=== PATIENT | male | born 1970 | race Caucasian/White ===

== ENCOUNTER 2021-12-27 19:56 | Emergency (ER) | payer MEDICAID ==
[~2021-12-27] VITALS: Ht 182.9 cm; Wt 90.7 kg
--- NOTE | 2021-12-27 20:11 | NUR ---
BIBS C/O ABSCESS ON LOWER ABDOMEN X 3 DAYS. DENIES FEVER, CHILLS. AAOX4, BREATHING EVEN AND UNLABORED, PULSES 2+ BILATERALLY.
[2021-12-27 20:25] LABS: BASOPHILS # (AUTO) 0.1 K/uL (0.0-0.2); BASOPHILS % (AUTO) 0.9 % (0.0-2.0); HEMATOCRIT 41 % (39-51); HEMOGLOBIN 13.8 g/dL (13.5-17.5); LYMPHOCYTES # (AUTO) 2.5 K/uL (0.8-4.8); LYMPHOCYTES % (AUTO) 19.7 % (20.0-44.0); MEAN CORPUSCULAR HGB CONC 34 g/dl (31.0-36.0); MEAN CORPUSCULAR VOLUME 86 fL (80-96); MONOCYTES # (AUTO) 1.3 K/uL (0.1-1.30); MONOCYTES % (AUTO) 9.8 % (2.0-12.0); NEUTROPHILS # (AUTO) 8.6 K/uL (1.8-8.9); NEUTROPHILS % (AUTO) 66.6 % (43.0-81.0); PLATELET COUNT (AUTO) 417 K/uL (150-450); RED BLOOD CELL COUNT(AUTO) 4.76 MIL/uL (4.5-6.0); WHITE BLOOD COUNT (AUTO) 12.9 K/uL (4.3-11.0)
[2021-12-27 20:44] LABS: ALBUMIN 3.5 g/dL (3.4-5.0); BILIRUBIN,DIRECT 0.2 mg/dL (0.0-0.2); BILIRUBIN,TOTAL 0.3 mg/dL (0.2-1.0); CALCIUM, SERUM 8.6 mg/dL (8.5-10.1); CREATININE 0.8 mg/dL (0.6-1.3); POTASSIUM 3.6 mmol/L (3.5-5.1); TOTAL PROTEIN, SERUM 7.4 g/dL (6.4-8.2)
[2021-12-27] MEDS ORDERED: CEPH500T PO (20:54)
[2021-12-27] MEDS ORDERED: SULF1TAB48 PO (20:54)
--- NOTE | 2021-12-27 21:01 | NUR ---
Patient discharged to home in stable condition. Written and verbal after care instructions given. Patient verbalizes understanding of instruction.
[2021-12-27 21:08] VITALS: BP 132/74
== END 2021-12-27 21:08 | disposition home or self-care (01) ==
LOC: ER 20:00
DX: L03.311 Cellulitis of abdominal wall (principal); Z79.899 Other long term (current) drug therapy
CPT/HCPCS: 36415; 80048-TC; 80076-TC; 83690-TC; 85025-TC